=== PATIENT | male | born 1955 | race Caucasian/White ===

== ENCOUNTER 2020-01-01 13:23 | Inpatient (IN) ==
[2020-01-01] MEDS ORDERED: Naloxone 0.4 MG/ML INJ IVP PRN (16:52)
[2020-01-01] MEDS ORDERED: Ringers Solution, Lactated 1,000 ML IVC SCH (18:00)
[2020-01-01] MEDS: cefTRIAXone 1,000 MG in Water for inj. (sterile) 10 ML IVP SCH (18:01)
[2020-01-01] MEDS: *HR* Labetalol 20 MG/4 ML SYRINGE IVP PRN (18:03)
[2020-01-01] MEDS: *HR* Heparin 5,000 UNIT/ML VIAL SQ SCH (21:55)
[2020-01-02 00:37] LABS: Basophils % 0.4 %; Eosinophils # 0.1 K/mcL (0.0-0.6); Eosinophils % 1.3 %; Hematocrit 27.7 % (37.5-50.1); Hemoglobin 9.1 g/dL (12.9-16.9); Immature Granulocytes % 0.2 % (0-4); Lymphocytes # 1.5 K/mcL (0.6-4.6); Lymphocytes % 16.7 %; Mean Corpuscular HGB Conc 32.9 g/dL (31.6-35.5); Mean Corpuscular Hemoglobin 30.3 pg (28.0-33.3); Mean Corpuscular Volume 92.3 fL (83.0-100.0); Mean Platelet Volume 10.1 fL (9.4-12.4); Monocytes # 0.8 K/mcL (0.0-1.3); Monocytes % 8.8 %; Neutrophils # 6.5 K/mcL (1.6-8.9); Platelet Count 270 K/mcL (140-400); Red Cell Distribution Width 12.4 % (11.5-14.5); Segmented Neutrophils % 72.6 %; White Blood Count 8.9 K/mcL (4.3-11.1)
[2020-01-02 00:53] LABS: Calcium 8.2 mg/dL (8.6-10.3); Potassium 4.9 mEq/L (3.5-5.1)
[2020-01-02 00:56] LABS: % Iron Saturation 25 % (20-55); Iron 49 mcg/dL (65-175); Transferrin 140 mg/dL (203-362)
[2020-01-02 01:13] LABS: Ferritin 140 ng/mL (20-250)
[2020-01-02 04:41] LABS: Bilirubin,Urine Negative (Negative); Blood,Urine Large (Negative); Clarity,Urine Turbid (Clear); Color,Urine Red (Yellow); Glucose,Urine (UA) Normal (Normal); Ketones,Urine 15 mg/dL (Negative); Leukocyte Esterase,Urine Moderate (Negative); Nitrite,Urine Positive (Negative); PH,Urine 6.5 pH Units (5.0-8.0); Protein,Urine >=1000 mg/dL (Neg-Trace); Specific Gravity,Urine 1.021 (1.010-1.025); Urobilinogen,Urine Normal (Normal)
[2020-01-02] MEDS: *HR* Heparin 5,000 UNIT/ML VIAL SQ SCH (05:27)
[2020-01-02] MEDS: Acetaminophen 325 MG TABLET PO PRN ×2 (05:27→18:07)
[2020-01-02 06:59] LABS: INR 1.2; Prothrombin Time 13.8 Seconds (9.4-12.1)
[2020-01-02 07:28] LABS: Calcium 8.2 mg/dL (8.6-10.3); Potassium 5.2 mEq/L (3.5-5.1)
[2020-01-02] MEDS: *HR* Labetalol 20 MG/4 ML SYRINGE IVP PRN (07:42)
[2020-01-02] MEDS ORDERED: *HR* Labetalol 20 MG/4 ML SYRINGE IVP PRN (08:01)
[2020-01-02] MEDS ORDERED: *HR* Promethazine 25 MG/ML VIAL IVP PRN (08:31)
[2020-01-02] MEDS ORDERED: *HR* LORazepam 0.5 MG TABLET PO PRN (08:32)
[2020-01-02] MEDS ORDERED: 0.9 % Sodium Chloride 500 ML ONE ×2 (11:23→12:05)
[2020-01-02] MEDS ORDERED: *HR* FentaNYL (PF) 100 MCG/2 ML VIAL IVP ONE ×2 (11:53→12:19)
[2020-01-02] MEDS ORDERED: *HR* Midazolam HCl 2 MG/2 ML VIAL IVP ONE ×2 (11:53→12:19)
[2020-01-02] MEDS ORDERED: Ampicillin/Sulbactam 1,500 MG in 0.9 % Sodium Chloride Mini Bag 100 ML IVPB ONE (11:56)
[2020-01-02] MEDS ORDERED: Iopamidol 100 ML in 0.9 % Sodium Chloride 50 ML IVP ONE (13:03)
[2020-01-02] MEDS: 0.9 % Sodium Chloride 1,000 ML IVC SCH (14:56)
[2020-01-02] MEDS: cefTRIAXone 1,000 MG in Water for inj. (sterile) 10 ML IVP SCH (17:22)
[2020-01-02] MEDS: amLODIPine 5 MG TABLET PO SCH (17:45)
[2020-01-03] MEDS: 0.9 % Sodium Chloride 1,000 ML IVC SCH ×3 (01:17→22:27)
[2020-01-03] MEDS: Acetaminophen 325 MG TABLET PO PRN ×2 (01:23→12:32)
[2020-01-03 02:19] LABS: Basophils # 0.1 K/mcL (0.0-0.2); Basophils % 0.6 %; Eosinophils # 0.3 K/mcL (0.0-0.6); Eosinophils % 3.4 %; Hematocrit 31.7 % (37.5-50.1); Hemoglobin 10.6 g/dL (12.9-16.9); Immature Granulocytes % 0.3 % (0-4); Lymphocytes # 1.4 K/mcL (0.6-4.6); Lymphocytes % 17.8 %; Mean Corpuscular HGB Conc 33.4 g/dL (31.6-35.5); Mean Corpuscular Hemoglobin 30.7 pg (28.0-33.3); Mean Corpuscular Volume 91.9 fL (83.0-100.0); Mean Platelet Volume 10.1 fL (9.4-12.4); Monocytes # 0.8 K/mcL (0.0-1.3); Monocytes % 9.5 %; Neutrophils # 5.4 K/mcL (1.6-8.9); Platelet Count 321 K/mcL (140-400); Red Blood Count 3.45 M/mcL (4.19-5.50); Red Cell Distribution Width 12.5 % (11.5-14.5); Segmented Neutrophils % 68.4 %
[2020-01-03 02:40] LABS: Calcium 9.3 mg/dL (8.6-10.3); Potassium 4.9 mEq/L (3.5-5.1)
[2020-01-03] MEDS: amLODIPine 5 MG TABLET PO SCH (08:13)
[2020-01-03] MEDS: cefTRIAXone 1,000 MG in Water for inj. (sterile) 10 ML IVP SCH (18:09)
[2020-01-03] MEDS ORDERED: Acetaminophen 325 MG TABLET PO PRN (18:14)
[2020-01-03] MEDS: *HR* OxyCODONE Immed Rel 5 MG TABLET PO PRN (19:55)
[2020-01-04 01:02] LABS: Basophils % 0.4 %; Eosinophils # 0.4 K/mcL (0.0-0.6); Eosinophils % 3.9 %; Hematocrit 34.8 % (37.5-50.1); Hemoglobin 11.5 g/dL (12.9-16.9); Immature Granulocytes % 0.6 % (0-4); Lymphocytes # 1.8 K/mcL (0.6-4.6); Lymphocytes % 17.9 %; Mean Corpuscular Hemoglobin 30.3 pg (28.0-33.3); Mean Corpuscular Volume 91.6 fL (83.0-100.0); Mean Platelet Volume 9.9 fL (9.4-12.4); Monocytes # 1.1 K/mcL (0.0-1.3); Monocytes % 11.2 %; Neutrophils # 6.6 K/mcL (1.6-8.9); Platelet Count 323 K/mcL (140-400); Red Cell Distribution Width 12.6 % (11.5-14.5)
[2020-01-04 01:17] LABS: Calcium 9.4 mg/dL (8.6-10.3); Potassium 4.6 mEq/L (3.5-5.1)
[2020-01-04] MEDS: *HR* OxyCODONE Immed Rel 5 MG TABLET PO PRN (05:43)
[2020-01-04] MEDS: 0.9 % Sodium Chloride 1,000 ML IVC SCH ×3 (07:45→17:58)
[2020-01-04] MEDS: amLODIPine 5 MG TABLET PO SCH (07:45)
[2020-01-04] MEDS ORDERED: *HR* FentaNYL (PF) 100 MCG/2 ML VIAL ONE ×2 (10:51→13:33)
[2020-01-04] MEDS ORDERED: *HR* Midazolam HCl 2 MG/2 ML VIAL ONE (10:51)
[2020-01-04] MEDS ORDERED: Ondansetron 4 MG/2 ML VIAL ONE (10:52)
[2020-01-04] MEDS ORDERED: *HR* Propofol 200 MG/20 ML VIAL IVP ONE (10:52)
[2020-01-04] MEDS ORDERED: Lidocaine -MPF 2% 2 ML VIAL ONE (10:52)
[2020-01-04] MEDS ORDERED: Dexamethasone 4 MG/ML VIAL ONE (10:52)
[2020-01-04] MEDS ORDERED: *HR* Labetalol 20 MG/4 ML SYRINGE IVP PRN ×2 (12:57→14:36)
[2020-01-04] MEDS ORDERED: Acetaminophen IV 1,000 MG/100 ML INFUS..BTL ONE (12:57)
[2020-01-04] MEDS ORDERED: *HR* OxyCODONE Immed Rel 5 MG TABLET PO PRN ×2 (12:57→14:36)
[2020-01-04] MEDS ORDERED: *HR* Promethazine 25 MG/ML VIAL IVP PRN ×2 (12:57→14:36)
[2020-01-04] MEDS ORDERED: *HR* HYDROmorphone PF 0.5 MG/0.5 ML SYRINGE IVP PRN (12:57)
[2020-01-04] MEDS ORDERED: Ondansetron 4 MG/2 ML VIAL IVP ONE (12:57)
[2020-01-04] MEDS: cefTRIAXone 1,000 MG in Water for inj. (sterile) 10 ML IVP SCH (13:20)
[2020-01-04] MEDS ORDERED: EPHEDrine 50 MG/ML VIAL ONE (13:52)
[2020-01-04] MEDS ORDERED: Acetaminophen 325 MG TABLET PO PRN (14:36)
[2020-01-04] MEDS ORDERED: Naloxone 0.4 MG/ML INJ IVP PRN (14:36)
[2020-01-04] MEDS ORDERED: *HR* LORazepam 0.5 MG TABLET PO PRN (14:36)
[2020-01-05 01:28] LABS: Basophils % 0.2 %; Hematocrit 35.1 % (37.5-50.1); Hemoglobin 11.7 g/dL (12.9-16.9); Immature Granulocytes % 0.6 % (0-4); Lymphocytes # 0.9 K/mcL (0.6-4.6); Mean Corpuscular HGB Conc 33.3 g/dL (31.6-35.5); Mean Corpuscular Hemoglobin 30.5 pg (28.0-33.3); Mean Corpuscular Volume 91.4 fL (83.0-100.0); Mean Platelet Volume 9.4 fL (9.4-12.4); Monocytes # 0.8 K/mcL (0.0-1.3); Monocytes % 7.6 %; Neutrophils # 8.4 K/mcL (1.6-8.9); Platelet Count 317 K/mcL (140-400); Red Blood Count 3.84 M/mcL (4.19-5.50); Red Cell Distribution Width 12.3 % (11.5-14.5); Segmented Neutrophils % 82.6 %; White Blood Count 10.2 K/mcL (4.3-11.1)
[2020-01-05 01:45] LABS: Calcium 9.2 mg/dL (8.6-10.3); Potassium 4.8 mEq/L (3.5-5.1)
[2020-01-05] MEDS: 0.9 % Sodium Chloride 1,000 ML IVC SCH (04:09)
[2020-01-05 07:46] VITALS: BP 152/96
[2020-01-05] MEDS ORDERED: amLODIPine 5 MG TABLET PO SCH (09:00)
== END 2020-01-05 13:40 | disposition home or self-care (01) | DRG 715 ==
LOC: 2ANU → EDSTATUS 15:59 → SUATTDRO 16:46
PROVIDERS: ADMIT Internal Medicine; ATTEND Internal Medicine